=== PATIENT | male | born 1980 | race Hispanic/Latino ===

== ENCOUNTER 2020-05-15 10:34 | Day surgery (SDC) | payer OTHER ==
[2020-05-15] MEDS ORDERED: SODIUM CHLORIDE 0.9% 1000 ML 1,000 ML IV SCH (11:15)
--- NOTE | 2020-05-15 11:35 | Anesthesia Consultation ---
Anesthesia Consult and Med Hx - Airway Anesthetic Teeth Evaluation: Poor, Chipped ROM Head & Neck: Adequate Mental/Hyoid Distance: Adequate Mallampati Class: Class I Intubation Access Assessment: Good - Pulmonary Exam CTA: Yes - Cardiac Exam Cardiac Exam: RRR - Pre-Operative Health Status ASA Pre-Surgery Classification: ASA2 Proposed Anesthetic Plan: MAC - Pulmonary Hx Smoking: Yes (1PPD) Hx Respiratory Symptoms: No - Cardiovascular System Hx Hypertension: No Hx Heart Attack/AMI: No Hx Percutaneous Transluminal Coronary Angioplasty (PTCA): No Hx Cardia Arrhythmia: No - Central Nervous System CVA: No - Gastrointestinal Hx Gastroesophageal Reflux Disease: Yes - Endocrine Hx Renal Disease: No Hx Liver Disease: No Hx Insulin Dependent Diabetes: No Hx Non-Insulin Dependent Diabetes: No Hx Thyroid Disease: No - Other Systems Hx Obesity: No
--- NOTE | 2020-05-15 11:35 | Anesthesia Day of Surgery ---
Anesthesia Day of Surgery - Day of Surgery Patient Examined: Yes Patient H&P Reviewed: Yes Patient is NPO: Yes
[2020-05-15] MEDS ORDERED: propofoL 200 MG/20 ML VIAL IV ONE (12:29)
--- NOTE | 2020-05-15 12:57 | Procedure Note ---
Date of procedure: 05/15/20 Pre-op diagnosis: Epigastric Pain Post-op diagnosis: other (No Peptic Ulcer Disease noted/Moderate,Erosive Esophagitis/ Gastritis/Mild to Moderate Hiatal Hernia/R/O Celiac Disease) Procedure: EGD with Biopsy Anesthesia: MAC Surgeon: MATTHEW SHIRLEY Estimated blood loss: minimal Pathology: list Specimen disposition: to lab Condition: stable Disposition: same day (Treat with PPI and prn Bentyl. Avoid aspirin and NSAID and anticoagulants for 5 days; otherwise reume home medication. Follow up in 1 to 2 weeks.)
--- NOTE | 2020-05-15 13:13 | Operative Report ---
PROCEDURE: Esophagogastroduodenoscopy with biopsy. INDICATIONS: This is a 40-year-old white male with a remote history of colitis, had a colonoscopy done a year ago, which did not show any evidence of microscopic colitis or ileitis. He did have a hyperplastic sigmoid polyp at that time that was removed. He does have a history of smoking as well as alcohol use and has been asked to refrain from it. Lately, he has been having epigastric pain and discomfort for which he has an EGD done to rule out for possible peptic ulcer disease. DESCRIPTION OF PROCEDURE: Esophagogastroduodenoscopy was done after getting informed consent with MAC anesthesia. Instrument was passed through the hypopharynx into the esophagus, which showed moderate erosive esophagitis. Biopsy was done from the distal esophagus. Photo documentation was obtained. The stomach showed a [id number] hiatal hernia on the retroverted view. There was some antral gastritis present, but no peptic ulcer disease noted within the gastric or the duodenal lumen. The pylorus was patent. The duodenum in the first and the second portion appeared normal. Biopsy was done from the second part of the duodenum to rule out for possible celiac disease. Additional biopsy was done from the gastric antrum, gastric body and angular incisura to rule out for H. pylori and atrophic gastritis. ASSESSMENT: Epigastric pain, no peptic ulcer disease noted. Moderate erosive esophagitis and [id number] hiatal hernia, gastritis, rule out celiac disease. There was minimal bleeding associated with the procedure. No complications associated with the procedure. PLAN: To treat the patient with a p.r.n. dose of Bentyl as well as PPI, have the patient avoid aspirin and aspirin-related products for the next few days. The patient has been given some tramadol to help with his abdominal pain. If the pain persists when he comes for repeat followup, then a CT scan of the abdomen and pelvis may be done for further assessment. The procedure was done in the GI lab with assistance of the GI lab team, which included LAURA, Cat Donahue; Barber doherty and with assistance of anesthesia. JOB# [id number] BRITTANY/TRINITY
[2020-05-15 13:52] VITALS: BP 121/79
--- NOTE | 2020-05-15 14:02 | Post Anesthesia Evaluation ---
- Post Anesthesia Evaluation Patient Participated: Yes Airway Patent: Yes Stable Respiratory Function: Yes Nausea/Vomiting: No Temp > 96.8F: Yes Pain Manageable: Yes Adequeate Hydration: Yes Anesthesia Complications: No
--- NOTE | 2020-05-15 14:06 | History and Physical Report ---
HISTORY OF PRESENT ILLNESS: This is a 40-year-old white male with a prior remote history of colitis. He had a colonoscopy done last year, which was essentially unremarkable and the biopsies did not show any evidence of colitis. He did, however, have a hyperplastic sigmoid polyp. Lately, he has been complaining of epigastric pain and discomfort suggestive possibly of peptic ulcer disease. The patient does have a history of smoking and alcohol use. ALLERGIES: He has no known allergies. No cardiac issues. No flu shots. MEDICATIONS: Welchol for diarrhea and Bentyl for abdominal pain. He has recently been placed on tramadol. PHYSICAL EXAMINATION: VITAL SIGNS: Temperature is 98, blood pressure is 118/78, pulse is 90. Height is 5 feet 10 inches, weight is 167 pounds. HEENT: Shows no JVD. LUNGS: Clear to auscultation. CARDIOVASCULAR: Normal. ABDOMEN: Shows epigastric tenderness to palpation. EXTREMITIES: No pedal edema. NEUROLOGIC: The patient is otherwise alert and oriented. ASSESSMENT: Epigastric pain, peptic ulcer disease, history of colitis, benign colon polyp. PLAN: To do an EGD at [facility] on 05/15/2020. The patient has been advised to refrain from smoking and is to be treated with tramadol and H2 martinez. JOB# [id number] BRITTANY/TRINITY
== END 2020-05-15 10:35 | disposition home or self-care (01) ==
LOC: GIO 10:34
DX: R10.13 Epigastric pain (principal); K44.9 Diaphragmatic hernia without obstruction or gangrene; K21.0 Gastro-esophageal reflux disease with esophagitis; K29.50 Unspecified chronic gastritis without bleeding; K31.89 Other diseases of stomach and duodenum; F17.210 Nicotine dependence, cigarettes, uncomplicated; Z72.89 Other problems related to lifestyle; Z79.899 Other long term (current) drug therapy; Z98.890 Other specified postprocedural states
CPT/HCPCS: 88305; 88342; J2704; J7030

== ENCOUNTER 2020-06-01 12:55 | Outpatient (CLI) | payer OTHER ==
[2020-06-01 13:32] LABS: Blood Urea Nitrogen 21 mg/dL (9-20)
--- NOTE | 2020-06-01 14:17 | Cat Scan Report ---
CT ABDOMEN AND PELVIS WITH CONTRAST INDICATION / CLINICAL INFORMATION: Generalized abdominal pain, chronic pancreatitis. TECHNIQUE: Axial CT images were obtained through the abdomen and pelvis after 100 cc of Omnipaque 300 IV contras t. Sagittal and coronal reformatted images. All CT scans at this location are performed using CT dose reduction for ALARA by means of automated exposure control. COMPARISON: None available. FINDINGS: LOWER CHEST: No significant abnormality. LIVER: No significant abnormality. GALLBLADDER: No significant abnormality. BILE DUCTS: No significant abnormality. PANCREAS: No significant abnormality. SPLEEN: No significant abnormality. ADRENALS: No significant abnormality. RIGHT KIDNEY and URETER: No significant abnormality. LEFT KIDNEY and URETER: No significant abnormality. STOMACH and SMALL BOWEL: No significant abnormality. COLON: No significant abnormality. APPENDIX: No significant abnormality. PERITONEUM: No free fluid. No free air. No fluid collection. LYMPH NODES: No significant adenopathy. AORTA and ARTERIES: No significant abnormality. IVC and VEINS: No significant abnormality. URINARY BLADDER: No significant abnormality. REPRODUCTIVE ORGANS: No significant abnormality. ADDITIONAL FINDINGS: None. SKELETAL SYSTEM: No significant abnormality. IMPRESSION: No significant abnormality. Signer Name: Burt Levine Jr, MD Signed: 06/01/2020 2:12 PM Workstation Name: [id number]
== END 2020-06-01 12:56 | disposition home or self-care (01) ==
LOC: CT 12:55
DX: K86.1 Other chronic pancreatitis (principal)
CPT/HCPCS: 36415; 74177; 82565; 84520; Q9967

== ENCOUNTER 2021-06-18 08:58 | Day surgery (SDC) | payer OTHER ==
[~2021-06-18 08:58] MED LIST: SODIUM CHLORIDE 0.9% 1000 ML 1,000 ML IV SCH
[2021-06-18] MEDS ORDERED: propofoL 200 MG/20 ML VIAL IV ONE (09:59)
--- NOTE | 2021-06-18 10:12 | Anesthesia Consultation ---
Anesthesia Consult and Med Hx Date of service: 06/18/21 - Airway Anesthetic Teeth Evaluation: Good ROM Head & Neck: Adequate Mental/Hyoid Distance: Adequate Mallampati Class: Class I Intubation Access Assessment: Good - Pre-Operative Health Status ASA Pre-Surgery Classification: ASA2 Proposed Anesthetic Plan: MAC - Pulmonary Hx Smoking: Yes (1PPD) Hx Respiratory Symptoms: No (neg COVID test 06/17/21) - Cardiovascular System Hx Hypertension: No - Central Nervous System CVA: No - Gastrointestinal Hx Gastroesophageal Reflux Disease: No (concern for inflammatory bowel disease) - Endocrine Hx Renal Disease: No Hx Liver Disease: No Hx Insulin Dependent Diabetes: No Hx Non-Insulin Dependent Diabetes: No Hx Thyroid Disease: No - Other Systems Hx Obesity: No
--- NOTE | 2021-06-18 10:12 | Anesthesia Day of Surgery ---
Anesthesia Day of Surgery - Day of Surgery Patient Examined: Yes Patient H&P Reviewed: Yes Patient is NPO: Yes
[2021-06-18] MEDS ORDERED: fentaNYL 100 MCG/2 ML INJ ONE (10:18)
--- NOTE | 2021-06-18 10:32 | Procedure Note ---
Date of procedure: 06/18/21 Pre-op diagnosis: Abdominal Pain/ colitis/ P/H/O Colon Polyp Post-op diagnosis: other (R/O Microscopic Colitis/ R/O Ileitis/No Colon Polyps or diverticular Disease noted/ Minor,Internal Hemorrhoids) Procedure: [place]oscopy with Biopsy [place] [facility] [place]: MATTHEW SHIRLEY Estimated blood loss: minimal Pathology: none Specimen disposition: to lab Condition: stable Disposition: same day (Treat with prn Bentyl for abdominal pain and OTC Probiotic. Avoid aspirin and NSAID for 5 days; otherwise resume home medication andf/U in 1 to 2 weeks ([phone]).)
--- NOTE | 2021-06-18 12:04 | Operative Report ---
DATE OF SURGERY: 06/18/2021 PROCEDURE PERFORMED: Colonoscopy with biopsy. INDICATIONS: This is a 41-year-old white male who has been having abdominal pain and discomfort. He has a prior history of colitis when he was young. Last colonoscopy done a year ago did not show any gross evidence of colitis. He had an inflammatory polyp that was removed at that time by snare excision. Repeat colonoscopy was done to make sure that he did not have any exacerbation of his colitis. DESCRIPTION OF PROCEDURE: Procedure was done after getting informed consent with MAC anesthesia. Initial rectal examination was unremarkable. The instrument was passed through the rectum onto the cecum, which was identified with ileocecal valve and the appendiceal orifice. Visualization was fair to good. The cecum was also visualized on the retroverted view. No additional pathology was noted. The terminal ileum was intubated, showed normal mucosa. Biopsy was done to rule out for possible ileitis. Cecum, ascending colon, transverse colon, descending colon, and sigmoid showed normal mucosa. Random biopsies were done to rule out for possible microscopic colitis. There was no evidence of any polyps or diverticular disease, and the rectum showed some minor internal hemorrhoid on the retroverted view. There was minimal bleeding associated with the procedure. No complications associated with the procedure. ASSESSMENT: Abdominal pain, rule out microscopic colitis, rule out ileitis. Past history of colon polyp, none now. Minor internal hemorrhoid. PLAN: To treat the patient with a p.r.n. dose of Bentyl. I encouraged the patient to take probiotics. Have the patient avoid aspirin and aspirin-related products for the next few days and follow up in the office in 1-2 weeks' time. Procedure was done in the GI lab with assistance of the GI lab team, which included the GI nurse, the administrative technician and with the assistance of anesthesia. TID: [id number] RECEIPT: [id number] BRITTANY/ELIZABETH/JESS
[2021-06-18 19:03] VITALS: BP 120/82
== END 2021-06-18 08:59 | disposition home or self-care (01) ==
LOC: GIO 08:58
DX: R10.9 Unspecified abdominal pain (principal); K52.9 Noninfective gastroenteritis and colitis, unspecified; K64.0 First degree hemorrhoids; K63.89 Other specified diseases of intestine; F17.210 Nicotine dependence, cigarettes, uncomplicated; Z79.899 Other long term (current) drug therapy; Z98.890 Other specified postprocedural states
CPT/HCPCS: 45380; 88305; J2704; J3010; J7030